=== PATIENT | male | born 1960 | race Caucasian/White ===

== ENCOUNTER 2024-10-07 11:48 | Emergency (ER) | payer MEDICARE, SELFPAY ==
[2024-10-07 11:51] VITALS: BP 164/77; PULSE 54; TEMP 36.5; O2SAT 98; BMI 27.3
[2024-10-07 12:08] LABS: Basophils Absolute Auto 0.1 10^3/uL (0.0-0.1); Basophils Percent Auto 0.5 % (0.2-2.0); Eosinophils Absolute Auto 0.1 10^3/uL (0.0-0.7); Eosinophils Percent Auto 0.9 % (0.9-7.0); Hemoglobin 14.7 g/dL (14.0-18.0); Immature Granulocytes Abs Auto 0.03 10^3/uL (0.00-0.03); Immature Granulocytes Pct Auto 0.3 % (0.0-0.5); Lymphocytes Absolute Auto 1.2 10^3/uL (1.2-3.8); Lymphocytes Percent Auto 12.2 % (20.5-60.0); Mean Corpuscular HGB Conc 34.2 g/dL (29.9-35.2); Mean Corpuscular Hemoglobin 30.8 pg (25.9-34.0); Mean Platelet Volume 10.1 fL (9.5-13.5); Monocytes Absolute Auto 0.5 10^3/uL (0.3-0.8); Monocytes Percent Auto 5.3 % (1.7-12.0); Neutrophils Absolute Auto 7.7 10^3/uL (1.4-6.5); Neutrophils Percent Auto 80.8 % (43.0-75.0); Platelet Count 248 10^3/uL (150-450); Red Blood Count 4.78 10^6/uL (4.70-6.10); Red Cell Distribution Width 12.8 % (11.0-15.0); White Blood Count 9.6 10^3/uL (4.0-11.0)
[2024-10-07 12:32] LABS: Alanine Aminotransferase 26 U/L (16-63); Albumin Globulin Ratio 0.9; Albumin Level 3.5 g/dL (3.4-5.0); Alkaline Phosphatase 106 U/L (46-116); Anion Gap 11.9; Aspartate Amino Transferase 27 U/L (15-37); BUN Creatinine Ratio 17.7; Bilirubin Total 0.6 mg/dL (0.2-1.0); Calcium 9.1 mg/dL (8.5-10.1); Carbon Dioxide 28.6 mmol/L (21.0-32.0); Chloride 102 mmol/L (98-107); Estimated GFR (African America >60 (>=60 mL/min/1.73m^2); Estimated GFR (Non-African Ame >60 (>=60 mL/min/1.73m^2); Globulin 3.7 g/dL; Glucose 145 mg/dL (74-106); Potassium 4.5 mmol/L (3.5-5.1); Sodium 138 mmol/L (136-145); Total Protein 7.2 g/dL (6.4-8.2)
[2024-10-07 14:32] LABS: Clarity Urine CLOUDY (CLEAR); Specific Gravity Urine 1.025 (1.005-1.025)
[2024-10-07 14:33] LABS: Bilirubin Urine COLOR INTERFERENCE (NEGATIVE); Blood Urine COLOR INTERFERENCE (NEGATIVE); Color Urine BROWN (YELLOW); Glucose Urine UA COLOR INTERFERENCE mg/dL (NEGATIVE); Ketones Urine COLOR INTERFERENCE mg/dL (NEGATIVE); Leukocyte Esterase Urine COLOR INTERFERENCE (NEGATIVE); Nitrite Urine COLOR INTERFERENCE (NEGATIVE); Protein Urine COLOR INTERFERENCE mg/dL (NEG/TRACE); Urine Microscopic Indicated YES; Urobilinogen Urine COLOR INTERFERENCE EU/dL (0.2-1.0); pH Urine COLOR INTERFERENCE (5.0-9.0)
[2024-10-07 14:47] LABS: Bacteria Urine TRACE #/HPF (NONE SEEN); Mucus Urine MODERATE (NONE SEEN); RBC Urine >100 #/HPF (0-2); Squamous Epithelial Cell Urine RARE #/LPF (NONE/RARE); WBC Urine 0-2 #/HPF (NONE SEEN)
[2024-10-07 14:48] LABS: Cast Seen? NONE SEEN #/LPF (NONE SEEN); Crystals Seen? None Seen #/HPF (None Seen); Urine Culture Indicated NO
--- NOTE | 2024-10-07 15:07 | ED.BACK1 ---
HPI HPI - Back Pain/Injury General Chief Complaint: Back Pain/Injury Stated Complaint: RIGHT FLANK PAIN, BLOODY URINE Time Seen by Provider: 10/07/24 12:01 Source: patient Mode of arrival: ambulance Limitations: no limitations History of Present Illness HPI Narrative: The patient is 64 years old male is coming to the ER complaining of right-sided flank pain radiating to his right leg associated with hematuria, the patient was brought to us by the EMS apparently he was on his way to [place] when this pain started, patient denies any history of kidney stone he denies any fever or chills he had some nausea and vomiting with this pain and he was provided with Toradol and Zofran by the EMS before arrival. The patient had no history of fall or trauma he denies any similar symptoms before Related Data Previous Rx's ?Medication ?Instructions ?Recorded cephalexin 500 mg capsule 500 mg PO Q8H 7 days #21 caps 10/07/24 ketorolac 10 mg tablet 10 mg PO Q8H PRN pain 4 days #10 10/07/24 tabs tamsulosin 0.4 mg capsule (Flomax) 0.4 mg PO DAILY #10 caps 10/07/24 Allergies Allergy/AdvReac Type Severity Reaction Status Date / Time No Known Drug Allergies Allergy Verified 10/07/24 11:51 Opioid HPI Opioid Management Most Recent Opioid Data: No Data to Display Review of Systems ROS Status of ROS 10 or more systems reviewed and unremarkable except as noted in history and below [facility] Medical History (Updated 10/07/24 @ 15:27 by Lashell Goodman MD) History of heart attack ?I25.2 - Old myocardial infarction (ICD-10) History of diabetes mellitus ?Z86.39 - Personal history of other endocrine, nutritional and metabolic disease (ICD-10) Surgical History (Updated 10/07/24 @ 11:57 by Edin Gonzalez) History of appendectomy ?Z90.49 - Acquired absence of other specified parts of digestive tract (ICD-10) History of heart artery stent ?Z95.5 - Presence of coronary angioplasty implant and graft (ICD-10) Social History Little interest or pleasure in doing things: not at all Feeling down, depressed, or hopeless: not at all Exam Narrative Exam Narrative: Nurses notes and vital signs reviewed and patient is not hypoxic. General: Well-appearing and in no apparent distress. Skin: Warm, dry, no pallor noted. No rash. Head: Normocephalic, atraumatic. Neck: Supple, non-tender. Eye: Pupils are equal, round and EOMI. No scleral icterus. Ears, Nose, Mouth, and Throat: TM are clear, no nasal mucosal hypertrophy. Oral mucosa is moist, no posterior oropharynx erythema, uvula is mid-line Cardiovascular: Regular Rate and Rhythm without murmur, gallop or rub. Respiratory: No accessory muscle use or respiratory distress. Lungs are clear to auscultation, no wheezing, rales or rhonchi Chest Wall: no tenderness Back: No midline thoracic or lumbar vertebral tenderness. No CVA tenderness Musculoskeletal: normal ROM, no calf or popliteal tenderness, no lower extremity edema/swelling GI: Abdomen is soft, non-distended. Normal bowel sounds. No masses appreciated. No tenderness to palpation. No rebound, guarding, or rigidity noted. Constitutional Vital Signs, click to edit/add: Last Vital Signs Temp 97.7 F 10/07/24 11:51 Pulse 54 L 10/07/24 11:51 Resp 16 10/07/24 11:51 BP 164/77 H 10/07/24 11:51 Pulse Ox 98 10/07/24 11:51 O2 Del Method Room Air 10/07/24 11:51 Course Vital Signs Vital signs: Vital Signs Temperature 97.7 F 10/07/24 11:51 Pulse Rate 54 L 10/07/24 11:51 Respiratory Rate 16 10/07/24 11:51 Blood Pressure 164/77 H 10/07/24 11:51 Pulse Oximetry 98 10/07/24 11:51 Oxygen Delivery Method Room Air 10/07/24 11:51 Temperature 97.7 F 10/07/24 11:51 Pulse Rate 54 L 10/07/24 11:51 Respiratory Rate 10/07/24 11:51 Blood Pressure 164/77 H 10/07/24 11:51 Pulse Oximetry 98 10/07/24 11:51 Oxygen Delivery Method Room Air 10/07/24 11:51 MDM - Back Pain/Injury MDM Narrative Medical decision making narrative: By the time the patient arrived to the ER he had no more pain at the pain was treated initially with Toradol CBC shows no leukocytosis urine shows that the patient have a lot of color interference there with no nitrite but there is some bacteria and will be covered with Keflex at the patient have a CAT scan that showed that he have a 4 mm kidney stone in the right side The patient was provided again with Toradol here in the ER before getting discharged Patient chemistry shows no acute pathology otherwise and the patient was provided with Toradol pills in addition to Flomax and strainer and he was provided with Keflex as a prophylaxis The patient case was discussed with from urology service The patient will follow-up with outpatient but apparently he is driving down to [place] and he mentioned that he will be stopping it the nearest ER in case the pain comes back The patient was provided with the report of the CAT scan to follow-up with his doctor in [place] The patient is to follow up with primary care physician in next 2-3 days or to return to the emergency department should any of the signs or symptoms worsen or new symptoms develop. The patient agrees with the following Diagnosis and Treatment plan and the patient will be discharged home. Lab Data Labs: Lab Results 10/07/24 10/07/24 Range/Units 11:55 14:20 WBC 9.6 (4.0-11.0) 10^3/uL RBC 4.78 (4.70-6.10) 10^6/uL Hgb 14.7 (14.0-18.0) g/dL Hct 43.0 (42.0-54.0) % MCV 90.0 (80.0-94.0) fL MCH 30.8 (25.9-34.0) pg MCHC 34.2 (29.9-35.2) g/dL RDW 12.8 (11.0-15.0) % Plt Count 248 (150-450) 10^3/uL MPV 10.1 (9.5-13.5) fL Neut % (Auto) 80.8 H (43.0-75.0) % Lymph % (Auto) 12.2 L (20.5-60.0) % [place] % (Auto) 5.3 (1.7-12.0) % Eos % (Auto) 0.9 (0.9-7.0) % Baso % (Auto) 0.5 (0.2-2.0) % Neut # (Auto) 7.7 H (1.4-6.5) 10^3/uL Lymph # (Auto) 1.2 (1.2-3.8) 10^3/uL [place] # (Auto) 0.5 (0.3-0.8) 10^3/uL Eos # (Auto) 0.1 (0.0-0.7) 10^3/uL Baso # (Auto) 0.1 (0.0-0.1) 10^3/uL Abs Immat Gran (auto) 0.03 (0.00-0.03) 10^3/uL Imm/Tot Granulo (auto) 0.3 (0.0-0.5) % Sodium 138 (136-145) mmol/L Potassium 4.5 (3.5-5.1) mmol/L Chloride 102 (98-107) mmol/L Carbon Dioxide 28.6 (21.0-32.0) mmol/L Anion Gap 11.9 BUN 17.0 (7.0-18.0) mg/dL Creatinine 0.96 (0.70-1.30) mg/dL Est GFR ( Amer) >60 (>=60 mL/min/1.73m^2) Est GFR (Non-Af Amer) >60 (>=60 mL/min/1.73m^2) BUN/Creatinine Ratio 17.7 Glucose 145 H (74-106) mg/dL Calcium 9.1 (8.5-10.1) mg/dL Total Bilirubin 0.6 (0.2-1.0) mg/dL AST 27 (15-37) U/L ALT 26 (16-63) U/L Alkaline Phosphatase 106 (46-116) U/L Total Protein 7.2 (6.4-8.2) g/dL Albumin 3.5 (3.4-5.0) g/dL Globulin 3.7 g/dL Albumin/Globulin Ratio 0.9 Urine Color Brown A (YELLOW) Urine Clarity Cloudy A (CLEAR) Urine pH Color interference A (5.0-9.0) Ur Specific [place] 1.025 (1.005-1.025) Urine Protein Color interference A (NEG/TRACE) mg/dL Urine Glucose (UA) Color interference A (NEGATIVE) mg/dL Urine Ketones Color interference A (NEGATIVE) mg/dL Urine Occult Blood Color interference A (NEGATIVE) Urine Nitrite Color interference A (NEGATIVE) Urine Bilirubin Color interference A (NEGATIVE) Urine Urobilinogen Color interference A (0.2-1.0) EU/dL Ur Leukocyte Esterase Color interference A (NEGATIVE) Urine RBC >100 A (0-2) #/HPF Urine WBC 0-2 A (NONE SEEN) #/HPF Ur Squamous Epith Cells Rare (NONE/RARE) #/LPF Urine Crystals None seen (None Seen) #/HPF Urine Bacteria Trace A (NONE SEEN) #/HPF Urine Casts None seen (NONE SEEN) #/LPF Urine Mucus Moderate A (NONE SEEN) Ur Culture Indicated? No Discharge Plan Discharge Chief Complaint: Back Pain/Injury Clinical Impression: Calcium kidney stone, Hydronephrosis Patient Disposition: Home, Self-Care Time of Disposition Decision: 15:27 Condition: Good Prescriptions / Home Meds: New tamsulosin [Flomax] 0.4 mg capsule 0.4 mg PO DAILY Qty: 10 0RF cephalexin 500 mg capsule 500 mg PO Q8H 7 Days Qty: 21 0RF ketorolac 10 mg tablet 10 mg PO Q8H PRN (Reason: pain) 4 Days Qty: 10 0RF Print Language: Italian Instructions: How to Strain Your Urine (ED), Hydronephrosis (ED) Referrals: Nimco Horner MD [Physician] - As soon as possible Physician,Non-Staff, [Primary Care Provider] - 1 week
[2024-10-07] MEDS: CEPHALEXIN 500 MG CAPSULE PO (15:25)
[2024-10-07] MEDS: TAMSULOSIN HCL 0.4 MG CAPSULE PO (15:26)
[2024-10-07] MEDS: KETOROLAC TROMETHAMINE 30 MG/ML VIAL 15 MG IVP (15:26)
== END 2024-10-07 16:38 | disposition home or self-care (01) ==
PROVIDERS: Emergency Provider Emergency Medicine
DX: N13.2 Hydronephrosis with renal and ureteral calculous obstruction (principal); Z95.5 Presence of coronary angioplasty implant and graft; Z90.49 Acquired absence of other specified parts of digestive tract
CPT/HCPCS: 36415; 74176; 80053; 81001; 85025; 96374; 99285; J1885